=== PATIENT | male | born 1990 | race Caucasian/White ===

== ENCOUNTER 2024-09-19 18:28 | Emergency (ER) | payer OTHER, SELFPAY ==
[2024-09-19] MEDS ORDERED: Boostrix 0.5 ML (Tdap) VIAL (>/=7 yrs of age) ONE (19:10)
[2024-09-19] MEDS ORDERED: Lidocaine 1% PF 5 ML VIAL ONE (19:10)
[2024-09-19] MEDS ORDERED: Bacitracin 1 PK ONE (19:54)
== END 2024-09-19 20:17 | disposition home or self-care (01) ==
LOC: ERS 18:28
DX: S91.115A Laceration without foreign body of left lesser toe(s) without damage to nail, initial encounter (principal); F17.290 Nicotine dependence, other tobacco product, uncomplicated; W22.8XXA Striking against or struck by other objects, initial encounter; Y93.01 Activity, walking, marching and hiking; Y92.89 Other specified places as the place of occurrence of the external cause; Z23 Encounter for immunization
CPT/HCPCS: 12001; 90471; 90715